=== PATIENT | male | born 1960 | race African-American/Black ===

== ENCOUNTER 2017-07-11 08:54 | Emergency (ER) | payer OTHER ==
--- NOTE | 2017-07-11 11:03 | RAD ---
LUMBAR SPINE 3 VIEWS: Date: 07/11/17 HISTORY: Low back pain. FINDINGS: There are five lumbar-type vertebrae. Pedicles are intact. Vertebral body height and alignment are ma intained. There is mild osteophytosis. IMPRESSION: Mild degenerative changes. No acute osseous abnormalities are demonstrated. POS: IMANI
--- NOTE | 2017-07-11 11:07 | RAD ---
CHEST 1 VIEW: Date: 07/11/17 HISTORY: Chest pain. COMPARISON: 03/27/12. FINDINGS: Cardiac silhouette is magnified by projection. Pulmonary vasculature is unremarkable. Mediastinum is midline. There is no confluent air space consolidation or evidence of pneumothorax. IMPRESSION: No active cardiopulmonary abnormalities are demonstrated. POS: H
[2017-07-11 11:12] LABS: #Basophils 0.1 thou/uL (0.0-0.2); #Eosinphils 0.7 thou/uL (0.0-0.7); #Monocytes 0.4 thou/uL (0.11-0.59); %Basophils 1.4 % (0.0-1.0); %Eosinophils 16.5 % (0.0-10.0); %Lymphocytes 47.3 % (21.0-51.0); %Monocytes 10.3 % (0.0-10.0); Hematocrit 46.1 % (42.0-52.0); Mean Platelet Volume 6.9 fL (7.4-10.4); Red Blood Cell (RBC) Count 5.07 mill/uL (4.70-6.10); White Blood Cell (WBC) Count 4.2 thou/uL (4.8-10.8)
[2017-07-11 11:30] LABS: ALT (SGPT) 26 U/L (8-55); AST (SGOT) 30 U/L (5-34); Alkaline Phosphatase 69 U/L (40-150); Anion Gap 9 mmol/L (10-20); BUN (Urea Nitrogen) 12 mg/dL (8.4-25.7); Bilirubin, Total 0.3 mg/dL (0.2-1.2); CK (CPK) 397 U/L (30-200); Calc. Creatinine Clearance 0 mL/min (70-130); Calcium 9.6 mg/dL (7.8-10.44); Carbon Dioxide 25 mmol/L (22-29); Chloride 108 mmol/L (98-107); Estimated GFR-MDRD Greater than 90; Globulin 3.2 g/dL (2.4-3.5); Lipase 91 U/L (8-78); Protein, Total 6.9 g/dL (6.0-8.3)
[2017-07-11 11:34] LABS: Troponin I Less than 0.010 ng/mL (< 0.028)
--- NOTE | 2017-08-16 11:33 | EKG ---
Test Reason : Blood Pressure : / mmHG Vent. Rate : 054 BPM Atrial Rate : 054 BPM P-R Int : 132 ms QRS Dur : 090 ms QT Int : 406 ms P-R-T Axes : 061 052 058 degrees QTc Int : 385 ms Sinus bradycardia Otherwise normal ECG Confirmed by AUSTIN FRIAS, SAMARIA Chu ([id number]), subeditor LIN SMITH ([id number]) on 08/16/2017 11:33:37 AM Referred By: Confirmed By:SAMARIA AVILA MD
== END 2017-07-11 12:17 | disposition home or self-care (01) ==
LOC: ERS 08:54
DX: M54.16 Radiculopathy, lumbar region (principal); R07.9 Chest pain, unspecified; I10 Essential (primary) hypertension; F41.9 Anxiety disorder, unspecified; F31.9 Bipolar disorder, unspecified; F20.9 Schizophrenia, unspecified; F17.210 Nicotine dependence, cigarettes, uncomplicated; Z79.899 Other long term (current) drug therapy
CPT/HCPCS: 71010; 72100; 80053; 82553; 83690; 84484; 85025; 93005; 99406

== ENCOUNTER 2018-10-15 02:33 | Emergency (ER) | payer OTHER | END 2018-10-15 02:59 | disposition left against medical advice (07) | LOC: ERS 02:33 | DX: Z53.21 Procedure and treatment not carried out due to patient leaving prior to being seen by health care provider (principal) ==

== ENCOUNTER 2018-10-16 17:14 | Emergency (ER) | payer OTHER ==
[2018-10-16 18:10] LABS: Bilirubin Negative (Negative); Blood, Urine Negative (Negative); Clarity CLEAR (Clear); Glucose, Urine (Dipstick) Negative (Negative); Leukocyte Negative (Negative); Nitrite Negative (Negative); Protein, Urine (Dipstick) Trace mg/dL (Neg-Trace)
[2018-10-16] MEDS ORDERED: Ondansetron PF 4 MG/2 ML Vial ONE (18:13)
[2018-10-16] MEDS ORDERED: Morphine 4 MG/ML VIAL ONE ×2 (18:13→19:28)
[2018-10-16] MEDS ORDERED: PRE FILLED FS SCH (19:30)
[2018-10-16] MEDS ORDERED: SODIUM CHLORIDE 0.9% FS SCH (19:30)
[2018-10-16] MEDS ORDERED: PHENYLEPHRINE HCL FS SCH (19:30)
[2018-10-16] MEDS ORDERED: Lidocaine 1% PF 5 ML VIAL ONE (19:56)
--- NOTE | 2018-10-17 02:05 | CON ---
DATE OF CONSULTATION: 10/16/2018 REASON FOR CONSULTATION: Priapism. HISTORY OF PRESENT ILLNESS: Mr. Barth is a 58-year-old male with no past urologic history, who presented with a 4-day history of painful erection. The patient presented to the emergency department approximately 36 hours ago; however, he left without being seen. The patient denies prior episodes. He reports using cocaine every other day and his last time of use was yesterday. The patient denies any personal history of sickle cell disease or sickle cell trait within the family. He has tried icing the penis, however, his discomfort primarily when he sleeps was intolerable and therefore, he presented back to the emergency department. No voiding complaints. No other complaints at this time. REVIEW OF SYSTEMS: Full 12-point review of systems was performed and is negative other than that mentioned in HPI. PAST MEDICAL HISTORY: Hypertension. PAST SURGICAL HISTORY: None. FAMILY HISTORY: Noncontributory. SOCIAL HISTORY: The patient lives at home with family. He drinks socially. He currently uses cocaine as well as marijuana. He smokes a pack of cigarettes per day. PSYCHIATRIC HISTORY: Previous inpatient psychiatric admissions with history of anxiety, bipolar disorder, depression, and schizophrenia. ALLERGIES: NO KNOWN DRUG ALLERGIES. MEDICATIONS: 1. Lisinopril. 2. Risperidone. 3. Trazodone. 4. Depakote. 5. Metoprolol. 6. Fluoxetine. 7. Topiramate. PHYSICAL EXAMINATION: VITAL SIGNS: Blood pressure 172/112, pulse 74, respirations 19, temperature 97.8, oxygen saturation 98% on room air. GENERAL: He is alert and oriented x3, in no apparent distress. HEENT: Normocephalic, atraumatic. NECK: Supple. No masses or lymphadenopathy. CARDIOVASCULAR: Regular rate and rhythm. PULMONARY: Breathing unlabored. No wheezing. ABDOMEN: Soft, nontender/nondistended. No masses or organomegaly. No suprapubic tenderness to palpation. No CVA tenderness. GENITOURINARY: Uncircumcised erected penis, mildly tender to palpation. Glans, soft. Meatus, normal. Scrotum, normal. Testes, palpably normal bilaterally. EXTREMITIES: Warm and well perfused. No edema. NEUROLOGIC: No focal deficits. ASSESSMENT: A 58-year-old male with priapism of 4-day duration. PLAN: I reviewed the natural history and clinical implications of priapism with the patient in detail. I explained that the high likelihood of permanent damage to the erectile tissues of the penis given the long duration of this priapism. After indications/risks/benefits/alternatives/possible outcomes were discussed with the patient in detail, he elected to proceed with the following procedure. Under sterile conditions, a dorsal penile nerve block was performed as well as a ring penile nerve block with 10 mL of 1% plain Marcaine. 18-gauge Angiocaths were placed in the right and left corporal bodies of the penis at the level of the midshaft. Attempt at aspiration of blood was unsuccessful. A total of approximately 7 mL of 400 mcg/mL concentration of phenylephrine was injected into the corpora cavernosa. This resulted in partial detumescence. The Angiocaths were subsequently removed and a light Coban pressure dressing was applied to the penis. The patient on exam has somewhat of a "woody" change to the penis, which occurs with chronic priapism. I once again explained the likelihood of permanent damage to the tissues, encouraged the patient to avoid any cocaine or amphetamine use, also instructed him to stop his trazodone for now. A followup appointment will be scheduled with the patient within the next 1-2 weeks. I discussed shunting, but explained that this would not likely result in a completely detumesced penis as the duration of this ischemic priapism has been extremely long. The patient elects to not proceed with this. I discussed the potential need for a penile prosthesis in the future. He understands this. He will follow up as an outpatient and will return to the emergency room for worsening of symptoms. Job ID: [id number]
[2018-10-19 22:03] LABS: Chlamydia by PCR Not Detected (NotDetected); GC by PCR Not Detected (NotDetected)
== END 2018-10-16 21:04 | disposition home or self-care (01) ==
LOC: ERS 17:14
DX: N48.30 Priapism, unspecified (principal); I10 Essential (primary) hypertension; F20.9 Schizophrenia, unspecified; F31.9 Bipolar disorder, unspecified; F41.9 Anxiety disorder, unspecified; F17.210 Nicotine dependence, cigarettes, uncomplicated; Z79.899 Other long term (current) drug therapy
CPT/HCPCS: 54220; 81003; 87491; 87591; 96361; 96374; 96375; 96376; J2001; J2270; J2370; J2405

== ENCOUNTER 2021-08-21 01:45 | Emergency (ER) | payer OTHER | END 2021-08-21 02:05 | LOC: ERS 01:45 | DX: Z02.79 Encounter for issue of other medical certificate (principal); I10 Essential (primary) hypertension; F17.210 Nicotine dependence, cigarettes, uncomplicated | CPT/HCPCS: 99282 ==

== ENCOUNTER 2022-09-22 19:00 | Emergency (ER) | payer OTHER ==
[2022-09-22] MEDS ORDERED: diphenhydrAMINE 50 MG/ML VIAL ONE (20:57)
[2022-09-22] MEDS ORDERED: Ketorolac Tromethamine 30 MG/ML VIAL ONE (20:57)
[2022-09-22] MEDS ORDERED: Metoclopramide HCl 10 MG/2 ML VIAL ONE (20:57)
[2022-09-22 21:14] LABS: #Lymphocytes 0.9 thou/uL (1.20-3.40); #Monocytes 0.6 thou/uL (0.11-0.59); #Neutrophils 3.4 thou/uL (1.40-6.50); %Basophils 0.4 % (0.0-1.0); %Eosinophils 0.6 % (0.0-10.0); %Lymphocytes 17.7 % (21.0-51.0); %Neutrophils 68.3 % (42.0-75.0); Hemoglobin 13.5 g/dL (14.0-18.0); Mean Corpuscular HGB CONC 34.1 g/dL (32.0-36.0); Mean Corpuscular Hemoglobin 30.6 pg (27.0-31.0); Mean Corpuscular Volume 89.8 fl (78.0-98.0); Mean Platelet Volume 7.5 fL (7.4-10.4); Platelet Count 207 10x3/uL (130-400); RBC Distribution Width 13.1 % (11.5-14.5); Red Blood Cell (RBC) Count 4.39 mill/uL (4.70-6.10); White Blood Cell (WBC) Count 4.9 10x3/uL (4.8-10.8)
[2022-09-22 21:24] LABS: ALT (SGPT) 27 U/L (8-55); AST (SGOT) 29 U/L (5-34); Albumin 3.8 g/dL (3.4-4.8); Alkaline Phosphatase 58 U/L (40-110); Anion Gap 10 mmol/L (10-20); BUN (Urea Nitrogen) 13 mg/dL (8.4-25.7); Bilirubin, Total 0.4 mg/dL (0.2-1.2); Calc. Creatinine Clearance 0 mL/min (70-130); Calcium 9.5 mg/dL (7.8-10.44); Carbon Dioxide 28 mmol/L (23-31); Chloride 105 mmol/L (98-107); Estimated GFR 98; Glucose 83 mg/dL (80-115); Potassium 3.7 mmol/L (3.5-5.1); Protein, Total 6.8 g/dL (5.8-8.1); Sodium 139 mmol/L (136-145)
== END 2022-09-22 22:16 | disposition home or self-care (01) ==
LOC: ERS 19:00
DX: R51.9 Headache, unspecified (principal); I10 Essential (primary) hypertension; F17.210 Nicotine dependence, cigarettes, uncomplicated; Z79.899 Other long term (current) drug therapy
CPT/HCPCS: 36415; 70450; 80053; 84484; 85025; 93005; 96361; 96374; 96375; J1200; J1885; J2765